=== PATIENT | female | born 1990 | race Two or more races ===

== ENCOUNTER 2016-11-01 22:39 | Emergency (ER) | payer BC, OTHER ==
[~2016-11-01] VITALS: Ht 172.7 cm; Wt 63.5 kg
[2016-11-02] MEDS ORDERED: HYDROcodone-ACET 10/325MG TAB PO ONE (03:15)
[2016-11-02 03:29] VITALS: BP 102/67
== END 2016-11-02 03:31 | disposition home or self-care (01) ==
LOC: ER 22:39
DX: S16.1XXA Strain of muscle, fascia and tendon at neck level, initial encounter (principal); S30.811A Abrasion of abdominal wall, initial encounter; R07.89 Other chest pain; M54.9 Dorsalgia, unspecified; R42 Dizziness and giddiness; R51 Headache; M79.602 Pain in left arm; M79.605 Pain in left leg; V49.59XA Passenger injured in collision with other motor vehicles in traffic accident, initial encounter; Y93.89 Activity, other specified; Y99.8 Other external cause status; Y92.488 Other paved roadways as the place of occurrence of the external cause
CPT/HCPCS: 71250; 72125; 73020; 74176